=== PATIENT | female | born 1940 | race Caucasian/White ===

== ENCOUNTER 2017-02-23 20:53 | Emergency (ER) | payer MEDICARE, BC ==
[~2017-02-23] VITALS: Ht 167.6 cm; Wt 61.7 kg
[2017-02-23] MEDS ORDERED: SIMV10TA6 PO (21:24)
[2017-02-23] MEDS ORDERED: ZOLP5TAB2 PO (21:24)
[2017-02-23] MEDS ORDERED: MONT10TA22 PO (21:24)
[2017-02-23] MEDS ORDERED: FLUO10CA26 PO (21:24)
[2017-02-23] MEDS ORDERED: ASPI-605 PO (21:24)
[2017-02-23] MEDS ORDERED: THYR30TA2 PO (21:24)
[2017-02-23 21:50] LABS: BASOPHILS # (AUTO) 0.1 K/uL (0.0-8.0); BASOPHILS % (AUTO) 0.7 % (0.0-2.0); EOSINOPHILS # (AUTO) 0.2 K/uL (0.0-0.7); EOSINOPHILS % (AUTO) 2.7 % (0.0-7.0); HEMATOCRIT 40.3 % (37-47); HEMOGLOBIN 13.6 G/DL (12.0-16.0); LYMPHOCYTES # (AUTO) 2.8 K/UL (0.8-4.8); LYMPHOCYTES % (AUTO) 35.4 % (20.5-51.5); MEAN CORPUSCULAR HEMOGLOBIN 29.5 UUG (27.0-31.0); MEAN CORPUSCULAR HGB CONC 34 g/dL (32.0-37.0); MEAN CORPUSCULAR VOLUME 87.8 FL (81.0-99.0); MONOCYTES # (AUTO) 0.6 K/UL (0.1-1.30); MONOCYTES % (AUTO) 7.5 % (0.0-11.0); NEUTROPHILS # (AUTO) 4.3 K/UL (1.8-8.9); NEUTROPHILS % (AUTO) 53.7 % (38.5-71.5); PLATELET COUNT (AUTO) 403 K/UL (150-450)
[2017-02-23 22:02] LABS: CARBON DIOXIDE 25 mmol/L (21-32); CHLORIDE 102 mmol/L (98-107); GLUCOSE 100 mg/dL (74-106); POTASSIUM 3.8 mmol/L (3.5-5.1); UREA NITROGEN, BLOOD 17 mg/dL (7-18)
[2017-02-23 22:08] LABS: ALANINE AMINOTRANSFERASE 25 U/L (14-59); ALKALINE PHOSPHATASE 63 U/L (50-136); ASPARTATE AMINOTRANSFERASE 24 U/L (15-37); BILIRUBIN,DIRECT 0.1 mg/dL (0.0-0.2); BILIRUBIN,TOTAL 0.3 mg/dL (0.2-1.0); LIPASE 205 U/L (73-393); TOTAL PROTEIN, SERUM 7.9 g/dL (6.4-8.2)
--- NOTE | 2017-02-23 22:10 | NUR ---
Radiology at bedside for US.
--- NOTE | 2017-02-23 22:17 | NUR ---
Radiology completed US, preliminary results to [facility].
--- NOTE | 2017-02-23 22:24 | NUR ---
Patient to Radiology for CT/XRAY via gurney.
--- NOTE | 2017-02-23 22:42 | NUR ---
Patient returned from Radiology, states no pain at this time, resting comfortably in bed with eyes closed.
--- NOTE | 2017-02-24 00:09 | NUR ---
IV removed. Catheter intact and site benign. Pressure and 4x4 gauze applied to site. No bleeding noted.
[2017-02-24 00:16] VITALS: BP 124/74
--- NOTE | 2017-02-24 00:30 | NUR ---
Patient discharged to home in stable conditon. Written and verbal after care instructions given. Patient verbalizes understanding of instructions.
== END 2017-02-24 00:30 | disposition home or self-care (01) ==
LOC: ER 20:53
DX: R10.9 Unspecified abdominal pain (principal); R11.2 Nausea with vomiting, unspecified; E03.9 Hypothyroidism, unspecified; Z86.73 Personal history of transient ischemic attack (TIA), and cerebral infarction without residual deficits; Z79.82 Long term (current) use of aspirin
CPT/HCPCS: 36415; 71010; 74176; 76705; 80048; 80076; 83690; 84484; 85025; 85730; 93005; 96361; 96374; 96375; 96376; 99285; A4663; J1170 ×2; J2405; J7030; Q0162; 70030-TC

== ENCOUNTER 2017-02-24 03:19 | Inpatient (IN) | payer BC ==
[~2017-02-24] VITALS: Ht 167.6 cm; Wt 65.4 kg
[~2017-02-24 03:19] MED LIST: ASPI-605 PO; FLUO10CA26 PO; MONT10TA22 PO; SIMV10TA6 PO; THYR30TA2 PO; ZOLP5TAB2 PO
[2017-02-24] MEDS ORDERED: ONDANSETRON 4 MG/2 ML VIAL IV ONE (03:45)
[2017-02-24] MEDS ORDERED: HYDROMORPHONE 1 MG/1 ML DISP.SYRIN IV ONE (03:45)
--- NOTE | 2017-02-24 03:46 | NUR ---
Call placed to [facility] Nephrology, Dr. Belle will be paged.
[2017-02-24] MEDS ORDERED: HYDROMORPHONE 2 MG/1 ML DISP.SYRIN ONE (03:55)
[2017-02-24] MEDS ORDERED: ONDANSETRON 4 MG/2 ML VIAL ONE (03:55)
[2017-02-24 04:00] VITALS: BP 145/69
--- NOTE | 2017-02-24 04:07 | NUR ---
Pt. admitted to [facility], under care of Dr. Belle Belongs List completed
--- NOTE | 2017-02-24 04:54 | NUR ---
RECEIVED PATIENT FROM ER VIA WHEELCHAIR. NO C/O OF PAIN. A&O X 4. BODY ASSESSMENT DONE. SKIN INTACT. BELONGINGS LIST DONE. SAFETY INITIATED. INSTRUCTED PATIENT TO USE CALL LIGHT WHEN SHE NEEDS ASSISTANCE. WILL CONTINUE TO MONITOR.
[2017-02-24] MEDS ORDERED: HYDROMORPHONE 1 MG/1 ML DISP.SYRIN IV PRN (05:15)
[2017-02-24] MEDS ORDERED: ACETAMINOPHEN 325 MG TABLET PO PRN (05:15)
--- NOTE | 2017-02-24 06:27 | NUR ---
NO CHANGES T/O SHIFT. PATIENT SLEEPING COMFORTABLY. NO C/O CHEST PAIN, SOB. COMFORT AND SAFETY MAINTAINED T/O SHIFT.
[2017-02-24] MEDS ORDERED: HYDROMORPHONE 2 MG/1 ML DISP.SYRIN IV PRN (07:15)
--- NOTE | 2017-02-24 07:30 | NUR ---
. PATIENT SLEEPING COMFORTABLY. NO C/O CHEST PAIN, SOB. COMFORT AND SAFETY MAINTAINED .CALL LIGHT WITH IN REACH
[2017-02-24 08:16] LABS: ALANINE AMINOTRANSFERASE 23 U/L (14-59); ALKALINE PHOSPHATASE 59 U/L (50-136); ASPARTATE AMINOTRANSFERASE 22 U/L (15-37); BILIRUBIN,TOTAL 0.3 mg/dL (0.2-1.0); CARBON DIOXIDE 27 mmol/L (21-32); CHLORIDE 103 mmol/L (98-107); GLUCOSE 123 mg/dL (74-106); MAGNESIUM 1.8 mg/dL (1.8-2.4); PHOSPHOROUS 3.3 mg/dL (2.5-4.9); POTASSIUM 4.2 mmol/L (3.5-5.1); TOTAL PROTEIN, SERUM 6.7 g/dL (6.4-8.2); UREA NITROGEN, BLOOD 15 mg/dL (7-18)
[2017-02-24 08:22] LABS: BASOPHILS % (AUTO) 0.3 % (0.0-2.0); EOSINOPHILS % (AUTO) 0.2 % (0.0-7.0); HEMATOCRIT 36.3 % (37-47); HEMOGLOBIN 12.4 G/DL (12.0-16.0); LYMPHOCYTES % (AUTO) 9.5 % (20.5-51.5); MEAN CORPUSCULAR HGB CONC 34 g/dL (32.0-37.0); MEAN CORPUSCULAR VOLUME 87.8 FL (81.0-99.0); MONOCYTES # (AUTO) 0.3 K/UL (0.1-1.30); NEUTROPHILS # (AUTO) 9.3 K/UL (1.8-8.9); PLATELET COUNT (AUTO) 368 K/UL (150-450); RED BLOOD CELL COUNT(AUTO) 4.13 MIL/UL (4.2-5.4); WHITE BLOOD COUNT (AUTO) 10.6 K/UL (4.0-11.2)
[2017-02-24] MEDS ORDERED: LEVOTHYROXINE SODIUM 75 MCG TABLET PO SCH (08:45)
[2017-02-24] MEDS ORDERED: ZOLPIDEM 5 MG TABLET PO PRN (08:45)
[2017-02-24] MEDS ORDERED: MONTELUKAST SODIUM 10 MG TABLET PO SCH (09:00)
[2017-02-24] MEDS ORDERED: ASPIRIN EC 81 MG TABLET.DR PO SCH (09:00)
[2017-02-24] MEDS ORDERED: FLUOXETINE HCL 10 MG CAPSULE PO SCH (09:00)
--- NOTE | 2017-02-24 09:30 | NUR ---
D/C ORDERS RECEIVED NOTED AND CARRIED OUT,D/C [place] PER MD ORDERS.DISCHARGE INSTRUCTIONS AND EDUCATIONS GIVEN TO THE PT,PT LEFT THE FACILITY VIA PRIVATE CAR WITH HER
[2017-02-24] MEDS ORDERED: SIMVASTATIN 10 MG TABLET PO SCH (21:00)
[2017-02-25] MEDS ORDERED: PANTOPRAZOLE SODIUM 40 MG TABLET.DR PO SCH (07:00)
[2017-02-25] MEDS ORDERED: LEVOTHYROXINE SODIUM 75 MCG TABLET PO SCH (07:00)
== END 2017-02-24 09:30 | disposition home or self-care (01) | DRG 392 ==
LOC: ER 03:22 → MED 03:30
PROVIDERS: ADMIT Internal Medicine; ATTEND Internal Medicine
DX: K29.20 Alcoholic gastritis without bleeding (principal); I10 Essential (primary) hypertension; E03.9 Hypothyroidism, unspecified; Z86.73 Personal history of transient ischemic attack (TIA), and cerebral infarction without residual deficits; Z85.828 Personal history of other malignant neoplasm of skin; F32.9 Major depressive disorder, single episode, unspecified
CPT/HCPCS: 36415; 70030-TC; 71010; 83690; 83735; 84100; 85025; 85730; 93005; A4663; J1170; J2405

== ENCOUNTER 2021-10-02 23:20 | Emergency (ER) | payer MEDICARE, OTHER ==
[~2021-10-02] VITALS: Ht 167.6 cm; Wt 65.8 kg
[~2021-10-02 23:20] MED LIST changes: -SIMV10TA6 PO; +SIMV10TA98 PO
--- NOTE | 2021-10-02 23:41 | NUR ---
Dr Trejo at bedside, MSE in progress.
[2021-10-02] MEDS ORDERED: PROCHLORPERAZINE EDISYLATE 10 MG/2 ML VIAL IV ONE (23:45)
[2021-10-02] MEDS ORDERED: IV NORMAL SALINE 1000 ML BAG IV ONE (23:45)
[2021-10-02] MEDS ORDERED: HYDROMORPHONE 1 MG/1 ML DISP.SYRIN IV ONE (23:45)
[2021-10-03 00:10] LABS: HEMATOCRIT 37.1 % (31.2-41.9); PLATELET COUNT (AUTO) 364 K/uL (179-408)
--- NOTE | 2021-10-03 00:14 | NUR ---
pt taken to CT.
[2021-10-03] MEDS ORDERED: PROCHLORPERAZINE EDISYLATE 10 MG/2 ML VIAL ONE (00:16)
[2021-10-03 00:17] LABS: *BILIRUBIN,URIN NEGATIVE (NEGATIVE); *BLOOD, URINE 2+ (NEGATIVE); *CLARITY,URINE HAZY (CLEAR); *COLOR,URINE YELLOW (YELLOW); *KETONES,URINE NEGATIVE (NEGATIVE); *UROBILINOGEN,URINE 0.2 E.U./dl (NORMAL); LEUKOCYTE ESTERASE ,URINE 1+ (NEGATIVE); NITRITE, URINE NEGATIVE (NEGATIVE); PH,URINE 6.5 (5.0-8.0); UGLUCOSE NEGATIVE (NEGATIVE)
--- NOTE | 2021-10-03 00:21 | NUR ---
pt returned from CT
[2021-10-03 00:23] LABS: BILIRUBIN,DIRECT 0.1 mg/dL (0.0-0.2); BILIRUBIN,TOTAL 0.3 mg/dL (0.2-1.0); CREATININE 1.3 mg/dL (0.6-1.3); POTASSIUM 4.2 mmol/L (3.5-5.1); TOTAL PROTEIN, SERUM 7.2 g/dL (6.4-8.2)
[2021-10-03 00:25] LABS: BACTERIA,URINE MODERATE /HPF (NONE SEEN); RBC,URINE 20-50 /HPF (0-3); SQUAMOUS EPITHELIAL CELL,UR FEW /HPF (NONE SEEN); WBC,URINE 20-50 /HPF (0-3)
[2021-10-03] MEDS ORDERED: HYDROMORPHONE 1 MG/1 ML DISP.SYRIN ONE (00:30)
[2021-10-03] MEDS ORDERED: CEFTRIAXONE 1 G in IV DEXTROSE 5% 50 ML IV ONE (00:45)
[2021-10-03] MEDS ORDERED: CEFTRIAXONE /D5W 50ML IVPB **ER PYXIS IV ONE (00:50)
[2021-10-03] MEDS ORDERED: PROC-11 PO (01:33)
[2021-10-03] MEDS ORDERED: OXYC-128 PO (01:33)
[2021-10-03] MEDS ORDERED: SULF1TAB48 PO (01:33)
[2021-10-03 01:44] VITALS: BP 136/83
--- NOTE | 2021-10-03 01:44 | NUR ---
Patient discharged to home in stable condition. Written and verbal after care instructions given. Patient verbalizes understanding of instructions. Stressed follow up or return to ER for worsening s/s. pt ambulated with steady gait. denies pain. no SOB. no chest pain. AOx4
== END 2021-10-03 01:45 | disposition home or self-care (01) ==
LOC: ER 23:25
DX: N30.90 Cystitis, unspecified without hematuria (principal); R11.0 Nausea; R10.32 Left lower quadrant pain; I45.2 Bifascicular block; Z79.82 Long term (current) use of aspirin; Z79.899 Other long term (current) drug therapy; E03.9 Hypothyroidism, unspecified; Z85.3 Personal history of malignant neoplasm of breast
CPT/HCPCS: 36415; 74176; 80048; 80076; 81001; 85025; 87086; 93005; 96365; 96375; 99285; J0696; J0780; J1170; J7040

== ENCOUNTER 2025-05-24 15:04 | Emergency (ER) | payer MEDICARE, OTHER ==
[~2025-05-24] VITALS: Ht 167.6 cm; Wt 64.4 kg
[~2025-05-24 15:04] MED LIST changes: +FLUO10CA PO; -FLUO10CA26 PO; +MONT-48 PO; -MONT10TA22 PO; +OXYC-128 PO; +PROC-11 PO; +SULF1TAB48 PO
[2025-05-24 15:11] VITALS: BP 184/95
[2025-05-24] MEDS ORDERED: BACITRACIN ZINC OINT 15 GM TUBE ONE (18:26)
[2025-05-24 18:39] VITALS: BP 184/95; O2SAT 97
== END 2025-05-24 18:39 | disposition home or self-care (01) ==
LOC: ER 15:04
DX: S05.11XA Contusion of eyeball and orbital tissues, right eye, initial encounter (principal); S01.511A Laceration without foreign body of lip, initial encounter; W01.0XXA Fall on same level from slipping, tripping and stumbling without subsequent striking against object, initial encounter; Y92.480 Sidewalk as the place of occurrence of the external cause; Y93.89 Activity, other specified; Y99.8 Other external cause status; Z79.82 Long term (current) use of aspirin; Z79.890 Hormone replacement therapy; Z79.899 Other long term (current) drug therapy; Z85.3 Personal history of malignant neoplasm of breast; Z87.19 Personal history of other diseases of the digestive system
CPT/HCPCS: 70486; A4606; A4663